=== PATIENT | female | born 1960 | race Caucasian/White ===

== ENCOUNTER 2018-05-16 23:20 | Emergency (ER) | payer BC ==
[~2018-05-16] VITALS: Ht 157.5 cm; Wt 82.6 kg
[2018-05-16 23:57] VITALS: BP 140/79
== END 2018-05-17 02:36 | disposition home or self-care (01) ==
LOC: ER 23:26
DX: S83.8X1A Sprain of other specified parts of right knee, initial encounter (principal); Z88.0 Allergy status to penicillin; Z88.2 Allergy status to sulfonamides; W19.XXXA Unspecified fall, initial encounter; Y93.89 Activity, other specified; Y99.8 Other external cause status; Y92.89 Other specified places as the place of occurrence of the external cause
CPT/HCPCS: 29505; 73562